=== PATIENT | female | born 1985 | race Caucasian/White ===

== ENCOUNTER 2016-07-04 09:29 | Inpatient (IN) | payer OTHER ==
[~2016-07-04] VITALS: Ht 165.1 cm; Wt 90.2 kg
--- NOTE | 2016-07-04 10:27 | TRIAGE ---
OB Triage Datetime Report Generated by CPN: 07/04/2016 10:27 Datetime: 07/04/2016 09:58 Maternal Assessment Level of Consciousness: Fully Conscious DTR's/Clonus: DTRs 1+ Headache: Denies Blurred Vision: No Respiratory Effort: Unlabored Breath Sounds, Left: Clear and Equal Breath Sounds, Right: Clear and Equal Nausea/Vomiting: Denies RUQ Epigastric Pain: Denies Facial Edema: None Labor Evaluation Frequency: IRREGULAR Monitor Mode: External Duration (sec)2399: 40-60 Quality: Mild Pattern: Normal: <= 5 Contractions in 10 Minutes Resting Tone [place]: Relaxed Heart Rate FHR Baseline Rate: 135 Monitor Mode: External US Variability: Moderate 6-25 bpm Accelerations: 15X15 Decelerations: None Category: Category I Pain Assessment Pain Scale: 4 Pain Presence: Intermittent Pain Type: Contraction Pain Location: Back Pain Goal: 3 Pain Relief Measures: Pain Medication Given Vaginal Exam Dilatation (cms): 0.0 Effacement (%): 90 Station: -0 Exam By: EMPERATRIZ FULLER Membrane Status: Intact Vaginal Bleeding: None Cervix, Consistency: Soft Cervix, Position: Midposition Presentation 'A': Cephalic Datetime: 07/04/2016 09:36 EGA: 38.3 Datetime: 07/04/2016 09:30 Assessment Type: Triage Maternal Assessment Level of Consciousness: Fully Conscious DTR's/Clonus: DTRs 2+; No Clonus Headache: Denies Blurred Vision: No Respiratory Effort: Unlabored; Regular Rhythm; Equal Expansion Breath Sounds, Left: Clear and Equal Breath Sounds, Right: Clear and Equal Nausea/Vomiting: Denies RUQ Epigastric Pain: Denies Lower Extremities Edema: None Degree: None Upper Extremities Edema: None Degree: None Facial Edema: None Fall Risk Assessment History of Falling: (0) No Secondary Diagnosis: (0) No Ambulatory Aid: (0) Bedrest/Nurse Assist IV Therapy: (0) No Gait: (0) Normal/Bedrest/Immobile Mental Status: (0) Oriented to Own Ability Fall Score: 0 Fall Risk Score Definition: No Risk: No action required Datetime: 07/04/2016 09:25 Time of Arrival: 07/04/2016 09:25 Arrived By: Ambulatory Arrived From: Home Chief Complaint: PT CAME IN C/O UC'S SINCE 0630 THIS AM. PT TSTATES FEELING + FM AND RATES PAIN 4/ 10 Movement: Present Contractions: Irregular Time Contractions Began: 07/04/2016 06:30 Contractions: IRREGULAR Rupture of Membranes: Denies Vaginal Bleeding: None Vaginal Discharge: Denies Recent Sexual Intercouse: Denies Abdominal Trauma: Not Applicable Patient Complaints: Contractions Additional Patient Complaints: NONE Time Provider Notified: 07/04/2016 10:10 Provider Notified: ABDI Initial Plan: MONITOR AND VE
--- NOTE | 2016-07-04 10:59 | PREOPHP ---
DATE OF ADMISSION: 07/04/2016 She is admitted today on an emergency basis. CHIEF COMPLAINT: Painful uterine contractions. HISTORY OF PRESENT ILLNESS: This is a 30-year-old female, 3, para 2, who had 2 previous madi arean sections and her EDC was determined by serial ultrasound done at the [facility] group to be 07/15/2016. She has been scheduled for this Monday for repeat and tubal ligation. Twila tomlinson, she presents today in active labor and she will be done today, 07/04/2016. The procedure of a section and tubal ligation were discussed in the office at great length. The alterna tives, benefits, risks, and possible complications were discussed including hemorrhage, infection, p elvic organ injury during the procedure, and postoperative complications like infection and thromboe mbolic phenomena. A 1% failure rate of the tubal ligation was also discussed. She was allowed to a sk questions. All her questions were answered to her satisfaction. Then, she signed the appropriat e surgical informed consents. 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 She jamison d a repeat section for the of her second child in March 2015 at [place]. She b ecame even with an IUD this . The IUD has been seen in utero by the sonographers. The patient denies any cardiovascular disease, hypertension, diabetes, renal disease, liver diseas e, thyroid disease or neurological problems. FAMILY HISTORY: Entirely unremarkable. REVIEW OF SYSTEMS: A 12-point review of systems is noncontributory. ALLERGIES: SHE HAS NO KNOWN ALLERGIES. PHYSICAL EXAMINATION: GENERAL: Well-developed and nourished, in distress because of labor. VITAL SIGNS: Stable. Blood pressure 110/73, pulse is 72 per minute. Respirations are 16 per minut e, temperature is 98. HEENT: Within normal limits. Pupils are PERRLA. NECK: Supple. Thyroid is nonpalpable. There is no lymphadenopathy. BREASTS: Show no masses or lumps. LUNGS: Clear to percussion and auscultation. HEART: Normal sinus rhythm without a murmur. ABDOMEN: Soft. Uterus enlarged to 37 cm above the pubic bone. There is a single baby with categor y 1 heart rate. PELVIC: The cervix is 2 cm, 100% effaced with bulging bag of barney. Membranes are intact. EXTREMITIES: Within normal limits. NEUROLOGIC: Also normal. IMPRESSION AND PLAN: 1. Thirty eight weeks and 3 days' gestation in active labor. 2. Previous x2. 3. History of severe PIH in the previous . The patient desires sterilization. Dictated By: RAJANI PATTON MD CR/NTS Conf#: [id number] DID#: [id number] CC: TERRIE TOURE MD;*EndCC*
[2016-07-04] MEDS ORDERED: METHYLERGONOVINE 0.2 MG INJ IM PRN ×2 (11:30→21:00)
[2016-07-04] MEDS ORDERED: CARBOPROST 250 MCG INJ IM PRN ×2 (11:30→21:00)
[2016-07-04] MEDS ORDERED: OXYTOCIN 30 UNITS/LR 500 ML IV SCH (11:30)
[2016-07-04] MEDS ORDERED: CEFAZOLIN 2 GM/50 ML (PMX) 50 ML IV SCH (11:30)
[2016-07-04] MEDS ORDERED: MISOPROSTOL 200 MCG TAB PR PRN ×2 (11:30→21:00)
[2016-07-04] MEDS ORDERED: OXYTOCIN 30 UNITS/LR 500 ML IV PRN ×2 (11:30→21:00)
[2016-07-04 11:37] LABS: ADD SCAN DIFF NO
[2016-07-04 11:48] LABS: BASOPHILS % 0.2 % (0.0-2.0); EOSINOPHILS # 0.1 10^3/ul (0.0-0.5); EOSINOPHILS % 0.8 % (0.0-7.0); HEMATOCRIT 38.8 % (37.0-47.0); HEMOGLOBIN 12.2 g/dl (12.0-16.0); LYMPHOCYTES # 1.8 10^3/ul (0.8-2.9); LYMPHOCYTES % 18.2 % (15.0-51.0); MEAN CORPUSCULAR HEMOGLOBIN 27.6 pg (29.0-33.0); MEAN CORPUSCULAR HGB CONC 31.4 g/dl (32.0-37.0); MEAN CORPUSCULAR VOLUME 87.8 fl (82.0-101.0); MEAN PLATELET VOLUME 11.6 fl (7.4-10.4); MONOCYTE # 0.4 10^3/ul (0.3-0.9); MONOCYTES % 4.4 % (0.0-11.0); NEUTROPHIL # 7.5 10^3/ul (1.6-7.5); PLATELET COUNT 213 10^3/UL (140-415); RED BLOOD COUNT 4.42 10^6/ul (4.20-5.40); RED CELL DISTRIBUTION WIDTH 14.6 % (11.5-14.5); WHITE BLOOD COUNT 9.9 10^3/ul (4.8-10.8)
[2016-07-04 12:02] LABS: INR 0.91; PROTIME 12.2 Sec (12.2-14.2)
[2016-07-04 12:03] LABS: PARTIAL THROMBOPLASTIN TIME 25.4 Sec (25.0-35.0)
[2016-07-04] MEDS ORDERED: ONDANSETRON 4 MG INJ ONE ×2 (12:11→12:14)
[2016-07-04] MEDS ORDERED: morphine SULFATE/PF (10 MG/10 ML) INJ ONE (12:11)
[2016-07-04] MEDS ORDERED: KETOROLAC 30 MG INJ ONE (12:12)
[2016-07-04] MEDS ORDERED: OXYTOCIN 10 UNIT INJ ONE (12:12)
[2016-07-04] MEDS ORDERED: METOCLOPRAMIDE 10 MG INJ ONE (12:12)
[2016-07-04] MEDS ORDERED: DEXAMETHASONE 4 MG/ML 1 ML INJ ONE (12:12)
[2016-07-04] MEDS ORDERED: CITRIC ACID/NA CITRATE 30 ML CUP ONE (12:14)
[2016-07-04] MEDS ORDERED: ONDANSETRON 4 MG INJ IV STA (12:18)
[2016-07-04] MEDS ORDERED: CITRIC ACID/NA CITRATE 30 ML CUP PO ONE (12:30)
[2016-07-04] MEDS ORDERED: BUTORPHANOL 2 MG INJ IV ONE (12:30)
[2016-07-04] MEDS: LACTATED RINGER'S 1,000 ML IV SCH ×3 (12:39→21:17)
[2016-07-04 12:40] VITALS: Ht 165.1 cm; Wt 90.2 kg
[2016-07-04] MEDS ORDERED: PHENYLephrine (100 MCG/ML) 5ML SYG ONE (16:07)
[2016-07-04] MEDS ORDERED: MEPERIDINE 100 MG INJ ONE (16:56)
[2016-07-04] MEDS ORDERED: KETOROLAC 30 MG INJ IV PRN (17:30)
[2016-07-04] MEDS ORDERED: morphine 2 MG INJ IV PRN ×2 (17:30)
[2016-07-04] MEDS ORDERED: HYDROmorphONE 1 MG/ML SYG IV PRN ×2 (17:30)
[2016-07-04] MEDS ORDERED: NALOXONE (0.4 MG/ML) INJ IV PRN (17:30)
[2016-07-04] MEDS ORDERED: PROCHLORPERAZINE 10 MG INJ IV PRN (17:30)
[2016-07-04] MEDS ORDERED: ONDANSETRON 4 MG INJ IV PRN (17:30)
[2016-07-04] MEDS ORDERED: DIPHENHYDRAMINE 50 MG INJ IV PRN (17:30)
--- NOTE | 2016-07-04 19:31 | OPR ---
DATE OF OPERATION: 07/04/2016 PREOPERATIVE DIAGNOSES: 1. A 38 weeks and 2 days' gestation. 2. Previous section x2. 3. Active labor. 4. Multiparity. 5. History of severe induced hypertension with the first . POSTOPERATIVE DIAGNOSES: 1. A 38 weeks and 2 days' gestation. 2. Previous section x2. 3. Active labor. 4. Multiparity. 5. History of severe induced hypertension with the first . FINDINGS: Baby girl, scores 8 and 9. Weight was 6 pounds. There was thick meconium in the a mniotic fluid. OPERATION PERFORMED: Repeat low segment transverse section. SURGEON: Rajani Cooper MD EXPORT ADMINISTRATOR: Dr. Umanzor ANESTHESIA: Spinal. ANESTHESIOLOGIST: Dr. Dennis ESTIMATED BLOOD LOSS: 1000 mL. COMPLICATIONS: None. SPECIMENS: The portions of fallopian tubes were sent to pathology. PROCEDURE AND FINDINGS: With the patient under spinal anesthesia, lying on the table in the dorsal recumbent position, tilted to the left side. She had a Blue catheter draining her bladder. Her ab domen and upper thighs were prepped with ChloraPrep, and after 3 minutes, she was dressed in the usu al sterile fashion for this procedure. A Pfannenstiel incision was done removing the old scar from skin. Once in the abdomen, the uterine segment was found to be very thinned out. This was opened t ransversely and thick meconium was found with very little fluid. Baby girl was delivered and immedi ately handed to the respiratory team director of content and programming who found her to have scores of 8 at first minute and 9 at 5 minutes and a weight of 6 pounds. Sample cord blood was obtained. The placenta was del ivered. The uterine cavity cleaned with a clean laparotomy pad. Incision in the uterus was closed with a continuous running stitch of 0 PDS. Good hemostasis was observed. The tubal ligation was ca rried out by holding the right tube with a [place] clamp in its mid portion. The loop was then tied twice with 0 plain catgut. The portion of the tube was removed and sent to pathology. Stumps were cauterized. The same was done on the contralateral side. No active bleeding was seen in any of th e incisions. The pelvis was thoroughly cleaned with clean laparotomy pads. All the incisions were checked for bleeders. There were none. The uterine incision was covered with Interceed to avoid fu ture adhesions. The abdomen was closed in layers starting with the peritoneum with continuous stitc h of 2-0 chromic catgut. The fascia was closed with a running stitch of 0 Vicryl. The subcutaneous tissues were approximated with a continuous running stitch of 0 plain catgut. Finally, the edges o f skin were brought together with 4-0 Monocryl. Sterile pressure dressing was applied and the patie nt was taken to recovery room with all vital signs stable. Needle, sponge, and instrument counts at the end of the procedure were correct twice. Dictated By: RAJANI COOPER MD CR/NTS Conf#: [id number] DID#: [id number] CC: ANNABEL UMANZOR MD;*EndCC*
[2016-07-04 19:47] VITALS: BP 130/72; PULSE 82; RESP 18
[2016-07-04 20:45] VITALS: BP 122/59; PULSE 58; RESP 19
[2016-07-04] MEDS: SENNA/DOCUSATE NA (8.6MG/50MG) TAB PO SCH (21:00)
[2016-07-04] MEDS ORDERED: OXYCODONE/ACETAMINOPHEN (5/325) TAB PO PRN ×2 (21:00)
[2016-07-04] MEDS ORDERED: LANOLIN 7 GM TUBE TOP PRN (21:00)
[2016-07-04] MEDS: CEFAZOLIN 2 GM/50 ML (PMX) 50 ML IV SCH (21:17)
[2016-07-04] MEDS: IBUPROFEN 800 MG TAB PO SCH (22:00)
[2016-07-04 23:00] VITALS: BP 111/56; PULSE 60; RESP 20
[2016-07-05 00:30] VITALS: BP_SYST 108; BP_SYST 109; BP_DIAS 56; BP_DIAS 59; PULSE 55; PULSE 61; RESP 19
[2016-07-05 04:00] VITALS: BP 104/59; PULSE 59; RESP 19
[2016-07-05] MEDS: CEFAZOLIN 2 GM/50 ML (PMX) 50 ML IV SCH ×2 (05:03→13:12)
[2016-07-05] MEDS: LACTATED RINGER'S 1,000 ML IV SCH ×2 (05:05→13:12)
[2016-07-05] MEDS: IBUPROFEN 800 MG TAB PO SCH ×3 (06:00→21:53)
--- NOTE | 2016-07-05 06:40 | OPPN ---
Date/Time of Note Date/Time of Note DATE: 07/05/16 TIME: 06:40 Post-Anesthesia Notes Post-Anesthesia Note Activity: WNL Respiratory function: WNL Cardiovascular function: WNL Mental status: Baseline Pain reasonably controlled: Yes Hydration appropriate: Yes Nausea/Vomiting absent: No Pt recovered from regional: Yes LAURENCE BALLARD MD Jul 05, 2016 06:40
[2016-07-05 07:30] VITALS: BP 103/53; PULSE 20; RESP 16
[2016-07-05 08:21] LABS: ADD SCAN DIFF NO
[2016-07-05 08:33] LABS: BASOPHILS % 0.1 % (0.0-2.0); EOSINOPHILS % 0.1 % (0.0-7.0); HEMOGLOBIN 9.9 g/dl (12.0-16.0); LYMPHOCYTES # 1.6 10^3/ul (0.8-2.9); LYMPHOCYTES % 12.5 % (15.0-51.0); MEAN CORPUSCULAR HEMOGLOBIN 28.3 pg (29.0-33.0); MEAN CORPUSCULAR HGB CONC 31.9 g/dl (32.0-37.0); MEAN CORPUSCULAR VOLUME 88.6 fl (82.0-101.0); MEAN PLATELET VOLUME 11.6 fl (7.4-10.4); MONOCYTE # 0.9 10^3/ul (0.3-0.9); MONOCYTES % 6.6 % (0.0-11.0); NEUTROPHIL # 10.4 10^3/ul (1.6-7.5); NEUTROPHILS % 80.2 % (39.0-77.0); PLATELET COUNT 179 10^3/UL (140-415); RED CELL DISTRIBUTION WIDTH 14.6 % (11.5-14.5); WHITE BLOOD COUNT 12.9 10^3/ul (4.8-10.8)
[2016-07-05] MEDS: SENNA/DOCUSATE NA (8.6MG/50MG) TAB PO SCH ×2 (09:16→21:53)
[2016-07-05 12:00] VITALS: BP 98/54; PULSE 64; RESP 18
--- NOTE | 2016-07-05 14:37 | PN ---
Date/Time of Note Date/Time of Note DATE: 07/05/16 TIME: 14:35 OB Subjective Subjective Subjective FEEL DIZZY NO FLATUS OB Objective Objective Objective VSS AFEBRILE ABDOMEN SOFT WOUND DRY LOCHIA MOD CALF NEG OB Assessment/Plan Other Assessment: STABLE Other plan: ORDERED ALLIE TOURE MD Jul 05, 2016 14:37
[2016-07-05 15:41] VITALS: BP 116/70; PULSE 67; RESP 20
[2016-07-05 19:40] VITALS: BP 97/56; PULSE 67; RESP 18
[2016-07-06 04:00] VITALS: BP 98/51; PULSE 53; RESP 18
[2016-07-06] MEDS: IBUPROFEN 800 MG TAB PO SCH ×3 (05:52→21:34)
[2016-07-06 08:00] VITALS: BP 100/53; PULSE 71; RESP 14
--- NOTE | 2016-07-06 08:40 | PN ---
Date/Time of Note Date/Time of Note DATE: 07/06/16 TIME: 08:39 OB Subjective Subjective Subjective Feeling well,passes gases.Nursing. OB Objective Objective Objective Abdomen soft,incision healing well. HEENT: WNL Heart: Rhythm Normal Lungs: Clear Abdomen: WNL Extremities: Normal Reflexes: Normal RAJANI PATTON MD Jul 06, 2016 08:40
[2016-07-06] MEDS: SENNA/DOCUSATE NA (8.6MG/50MG) TAB PO SCH ×2 (09:24→21:34)
[2016-07-06 16:00] VITALS: BP 103/59; PULSE 74; RESP 16
[2016-07-06 20:00] VITALS: BP 116/73; PULSE 77; RESP 18
[2016-07-07 04:00] VITALS: BP 118/69; RESP 18
[2016-07-07] MEDS: IBUPROFEN 800 MG TAB PO SCH (05:39)
[2016-07-07 08:00] VITALS: BP 114/62; PULSE 57; RESP 18
[2016-07-07] MEDS ORDERED: DIPHTH/TET/ACEL PERTUSS (ADULT) 0.5 ML VIAL IM* ONE (09:00)
--- NOTE | 2016-07-07 09:10 | PD.PPDC ---
IRRIGATION INSTALLATION SPECIALIST Discharge Instruction Diagnosis Final Diagnosis: 38 weeks and 2 days in labor. Previous .Multiparity. Condition Patient Condition: Good Diet Diet: Resume Regular Diet Activity/Restrictions Activity: Normal Activity May Shower Restrictions: No Lifting No Driving No Sexual Activity Nothing in the Vagina No [place] Wound/Drain Care Instructions Wound/Drain Care Instructions: Keep clean and dry Follow-up Follow-up with Physician: 1, Week/Weeks Return to clinic for MATERIAL REQUISITIONER Instructions: Fever greater than 101 Worsening abdominal pain Excessive Vaginal Bleeding Unable to tolerate diet OB Instructions: Depression Surgical Instructions: Incisional Drainage Incisional Redness RAJANI PATTON MD Jul 07, 2016 09:10
[2016-07-07] MEDS: SENNA/DOCUSATE NA (8.6MG/50MG) TAB PO SCH (09:53)
--- NOTE | 2016-07-07 11:54 | DS ---
DATE OF ADMISSION: 07/04/2016 DATE OF DISCHARGE: 07/07/2016 SUMMARY: This is a 30-year-old female, 3, para 2, with 2 previous sections who had been scheduled for repeat and tubal ligation at term. She presented at 38 weeks and 2 days' gestation in active labor. She underwent a repeat se ction with bilateral tubal ligation. The procedure was uneventful. The following day, she was foun d to have mild anemia, but was asymptomatic and did not require blood transfusion. She is doing well today and desires to go home. The incision is healing well. She was given a pres cription for Percocet 60 tablets to use 1 or 2 every 6 hours p.r.n. pain and followup visit in the o ffice in 1 week. She was given written instructions about activity and diet and care for her incision. She is discharged in good condition. Dictated By: RAJANI MCKEON/MARCELA Conf#: [id number] DID#: [id number] CC: ANNABEL MOTTA MD;*End*
== END 2016-07-07 13:30 | disposition home or self-care (01) | DRG 766 ==
LOC: OBT 09:29 → L-D 09:30 → OBT 10:36 → L-D 10:39 → PP1 20:53
PROVIDERS: ADMIT Specialist; ATTEND Specialist
PROC: 0UL70ZZ Occlusion of Bilateral Fallopian Tubes, Open Approach (ICD-10-PCS; 2016-07-04)
PROC: 10D00Z1 Extraction of Products of Conception, Low, Open Approach (ICD-10-PCS; principal; 2016-07-04 12:00)
PROC: 3E00X4Z Introduction of Serum, Toxoid and Vaccine into Skin and Mucous Membranes, External Approach (ICD-10-PCS; 2016-07-07)
DX: O34.211 Maternal care for low transverse scar from previous cesarean delivery (principal); Z23 Encounter for immunization; Z3A.38 38 weeks gestation of pregnancy; Z30.2 Encounter for sterilization; Z37.0 Single live birth
CPT/HCPCS: 85025; 85610; 85730; 86592; 86850; 86870; 86900; 86901; 88302; 90715; 94760; 99464; G0463; J0690; J1100; J1885; J2175; J2274; J2370; J2405; J2590; J2765; J7120

== ENCOUNTER 2017-07-06 16:09 | Emergency (ER) | END 2017-07-06 17:37 | disposition home or self-care (01) ==